=== PATIENT | female | born 1945 | race Two or more races ===

== ENCOUNTER 2024-07-08 15:00 | Emergency (ER) | payer OTHER ==
[~2024-07-08] VITALS: Ht 157.5 cm; Wt 44.5 kg
[2024-07-08 15:19] VITALS: PULSE 64; RESP 18; O2SAT 95
--- NOTE | 2024-07-08 15:20 | ED.PDOC ---
History of Present Illness HPI Comments 78 year old female LEANNA presents to the ED with chief complaint of muscle spasms and generalized numbness. Patient reports that she has had chronic generalized numbness for the past year, following up with her PCP regarding this, but no diagnosis has been made. Patient relays that last night she started to e xperience severe muscle spasms and stiffness. Patient notes some shortness of breath, but believes it to be due to anxiety she is having regarding her condition. Patient denies any weakness, headache, LOC, dizziness, chest pain, or fever. Patient appears to be in poor overall health and is slight in stature. Chief Complaint: General Weakness Time Seen by MD: 15:17 Reviewed Notes: Nurses Notes, Mill Tender Washing Notes, Medications, Allergies Allergies: Coded Allergies: Statins (Verified Allergy, Unknown, 07/08/24) Information Source: Patient, Emergency Med Personnel Mode of Arrival: EMS Severity: Moderate Timing: Hours Duration: Since onset Prehospital treatment: None Past Medical History PAST MEDICAL HISTORY: Denies Past Medical History (Other): Recent history of weakness and muscle cramping Surgical History: Denies all surgeries DEAF/HARD OF HEARING SPECIALIST History: Denies all DEAF/HARD OF HEARING SPECIALIST Hx Family History Family History: Reviewed,noncontributory to illness Social History Smoker: Non-Smoker Alcohol: Denies ETOH Use Drugs: Denies Drug Use Lives In: Home Constitutional: reports: fatigue, weakness; denies: chills, diaphoresis, fever, malaise, sweats, others EENTM: denies: blurred vision, double vision, ear bleeding, ear discharge, ear drainage, ear pain, ear ringing, eye pain, eye redness, hearing loss, mouth pain, mouth swelling, nasal discharge, nose bleeding, nose congestion, nose pain, photophobia, tearing, throat pain, throat swelling, voice changes, others Respiratory: reports: shortness of breath; denies: cough, hemoptysis, orthopnea, SOB at rest, SOB with excertion, stridor, wheezing, others Cardiovascular: denies: chest pain, dizzy spells, diaphoresis, Dyspnea on exertion, edema, irregular heart beat, left arm pain, lightheadedness, palpitations, PND, syncope, others Gastrointestinal: denies: abdomen distended, abdominal pain, blood streaked bowels, constipated, diarrhea, dysphagia, difficulty swallowing, hematemesis, melena, nausea, poor appetite, poor fluid intake, rectal bleeding, rectal pain, vomiting, others Genitourinary: denies: abnormal vagina bleeding, burning, dyspareunia, dysuria, flank pain, frequency, hematuria, incontinence, pain, , vagina discharge, urgency, others Neurological: reports: numbness; denies: dizziness, fainting, headache, left sided numbness, left sided weakness, paresthesia, pre-existing deficit, right sided numbness, right sided weakness, seizure, speech problems, tingling, tremors, weakness, others Musculoskeletal: reports: others (Muscle spasms); denies: back pain, gout, joint pain, joint swelling, muscle pain, muscle stiffness, neck pain Integumetry: denies: bruises, change in color, change in hair/nails, dryness, laceration, lesions, lumps, rash, wounds, others Allergic/Immunocompromised: denies: Difficulty Healing, Frequent Infections, Hives, Itching, others Hematologic/Lymphatic: denies: anemia, blood clots, easy bleeding, easy bruising, swollen glands, others Endocrine: denies: excessive hunger, excessive sweating, excessive thirst, excessive urination, flushing, intolerance to cold, intolerance to heat, unexplained weight gain, unexplained weight loss, others Psychiatric: reports: anxiety; denies: bipolar disorder, depression, hopeless, panic disorder, schizophrenia, sleepless, suicidal, others All Other Systems: Reviewed and Negative Physical Exam General Appearance: Mild Distress ( patient appears to be in moderate distress due to anxiety related to her event rather than definitive pain concerns.), Normal HEENT: Normal ENT Inspection, Pharynx Normal, TMs Normal Neck: Full Range of Motion, Non-Tender, Normal, Normal Inspection Respiratory: Chest Non-Tender, Lungs Clear, No Accessory Muscle Use, No Respiratory Distress, Normal Breath Sounds Cardiovascular: No Edema, No JVD, No Murmur, No Gallop, Normal Peripheral Pulses, Regular Rate/Rhythm Breast Exam: Deferred Gastrointestinal: No Organomegaly, Non Tender, No Pulsatile Mass, Normal Bowel Sounds, Soft Genitalia: Deferred Pelvic: Deferred Rectal: Deferred Extremities: Other ( Patient was slight of build and displays equal weakness bilaterally. No definitive muscle wasting appreciated. No signs of trauma or infective components.) Neurologic: NOT DONE Cerebellar Function: NOT DONE Reflexes: NOT DONE Skin: Dry, Normal Color, Warm Lymphatic: No Adenopathy Was a procedure done? Was a procedure done?: No Differential Dx Considerations may include: Electrolyte imbalance, sepsis, viral illness, neurologic concerns X-Ray, Labs, Meds, VS Vital Signs Date Time Temp Pulse Resp B/P (MAP) Pulse Ox O2 Delivery O2 Flow Rate FiO2 07/08/24 18:00 67 16 133/96 (108) 93 07/08/24 15:34 98.8 71 16 107/58 (74) 94 98.8 07/08/24 15:22 71 07/08/24 15:19 64 18 95 Room Air* 0 21 07/08/24 15:05 97.8 82 18 141/76 (97) 97 97.8 Lab Test 07/08/24 17:39 07/08/24 15:40 07/08/24 15:22 Range/Units Troponin I High Sensitivity 3 L 3 L </=34 ng/L Urine Color Yellow Yellow Urine Clarity Turbid H Clear Urine pH 7.5 5.0-9.0 Urine Specific [place] 1.018 1.001-1.035 Urine Protein Negative Negative Urine Ketones Negative Negative Urine Blood Negative Negative /uL Urine Nitrite Negative Negative Urine Bilirubin Negative Negative Urine Urobilinogen Normal Negative mg/dL Urine Leukocyte Esterase Negative Negative /uL Urine RBC 1 0 - 4 /hpf Urine Microscopic WBC 1 0-5 /HPF Urine Squamous Epithelial Cells None seen <5 /hpf Urine Bacteria None seen None Seen /hpf Urine Glucose 1+ H Normal mg/dL White Blood Count 5.0 4.4-10.8 10^3/uL Red Blood Count 4.16 4.0-5.20 10^6/uL Hemoglobin 13.7 12.2-16.2 g/dL Hematocrit 40.9 36.0-46.0 % Mean Corpuscular Volume 98.5 80.0-100.0 fL Mean Corpuscular Hemoglobin 32.9 H 28.0-32.0 pg Mean Corpuscular Hemoglobin Concent 33.4 32.0-36.0 g/dL Red Cell Distribution Width 12.9 11.8-14.3 % Platelet Count 269 140-450 10^3/uL Mean Platelet Volume 7.5 6.9-10.8 fL Neutrophils (%) (Auto) 61.7 37.0-80.0 % Lymphocytes (%) (Auto) 29.2 10.0-50.0 % Monocytes (%) (Auto) 6.4 0.0-12.0 % Eosinophils (%) (Auto) 1.8 0.0-7.0 % Basophils (%) (Auto) 0.9 0.0-2.0 % Neutrophils # (Auto) 3.1 1.6-8.6 10 ^3/uL Lymphocytes # (Auto) 1.5 0.4-5.4 10 ^3/uL Monocytes # (Auto) 0.3 0-1.3 10 ^3/uL Eosinophils # (Auto) 0.1 0-0.8 10 ^3/uL Basophils # (Auto) 0 0-0.2 10 ^3/uL Nucleated Red Blood Cells 0.0 % D-Dimer, Quantitative 0.89 H 0.0-0.49 mg/L FEU Sodium Level 139 136-145 mmol/L Potassium Level 4.3 3.5-5.1 mmol/L Chloride Level 102 98-107 mmol/L Carbon Dioxide Level 28 20-31 mmol/L Anion Gap 9 5-15 Blood Urea Nitrogen 19 9-23 mg/dL Creatinine 0.59 0.550-1.02 mg/dL Glomerular Filtration Rate Calc 92 >90 mL/min BUN/Creatinine Ratio 32.2 H 10.0-20.0 Serum Glucose 224 H 74-106 mg/dL Calcium Level 9.8 8.7-10.4 mg/dL Magnesium Level 1.3 L 1.6-2.6 mg/dL Total Bilirubin 0.3 0.2-1.0 mg/dL Aspartate Amino Transferase (AST) 11 L 13-40 U/L Alanine Aminotransferase (ALT) 9 7-40 U/L Alkaline Phosphatase 50 46-116 U/L B-Type Natriuretic Peptide 36.79 0-100 pg/mL Total Protein 5.9 5.7-8.2 g/dL Albumin 3.9 3.2-4.8 g/dL X-Ray, Labs, Meds, VS Comment All studies performed the ED were evaluated by me personally. Serum laboratories were unremarkable for any systemic process as was urinalysis. EKG revealed a sinus rhythm with a rate of 71. 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 ME interval 166 and QT interval of 379.Chest x-ray was unremarkable for any consolidation or fibrotic i llness. Unknown as to the patient's general weakness concerns. Advised patient she will need to continue follow up with the primary care provider for possible rheumatology referral and evaluation. Time of 1ST Reevaluation: 19:19 Reevaluation 1ST: Improved Consultation: PCP Patient Education/Counseling: Diagnosis, Treatment Family Education/Counseling: Diagnosis, Treatment, No Family Present Departure 1 Departure Time of Disposition: 19:20 Impression: Primary Impression: Generalized weakness Disposition: HOME / SELF CARE / HOMELESS Condition: Stable Additional Instructions: Advised patient continue follow up with primary care provider for continued evaluation of her general weakness concerns. Patient may require a rheumatology referral and evaluation or possible neurologic referral. Discharged With: Self, Spouse Critical Care Note Critical Care Time?: No Stability Stability form required: No Heart Score Heart Score: Heart Score Response (Comments) Value History Slightly Suspicious 0 EKG Repolarization Disturb 1 Age >65 2 Risk Factors No known risk factors 0 Troponin Normal limit 0 Total 3 I personally scribed for YAMEL KAPADIA PAC ([email or web address]) on 07/08/24 at 15:19. Electronically submitted by Gualberto Boyer ([email or web address]). YAMEL KAPADIA PAC Jul 08, 2024 15:19
[2024-07-08 15:50] LABS: Basophils # (auto) 0 10 ^3/uL (0-0.2); Basophils % (auto) 0.9 % (0.0-2.0); Eosinophils # (auto) 0.1 10 ^3/uL (0-0.8); Eosinophils % (auto) 1.8 % (0.0-7.0); Hematocrit 40.9 % (36.0-46.0); Hemoglobin 13.7 g/dL (12.2-16.2); Lymphocytes # (auto) 1.5 10 ^3/uL (0.4-5.4); Lymphocytes % (auto) 29.2 % (10.0-50.0); Mean Corpuscular Hemoglobin 32.9 pg (28.0-32.0); Mean Corpuscular Hgb Conc. 33.4 g/dL (32.0-36.0); Mean Corpuscular Volume 98.5 fL (80.0-100.0); Monocytes # (auto) 0.3 10 ^3/uL (0-1.3); Monocytes % (auto) 6.4 % (0.0-12.0); Neutrophils # (auto) 3.1 10 ^3/uL (1.6-8.6); Neutrophils % (auto) 61.7 % (37.0-80.0); Platelet Count (auto) 269 10^3/uL (140-450); Red Blood Cells 4.16 10^6/uL (4.0-5.20); Red Cell Distribution Width 12.9 % (11.8-14.3)
--- NOTE | 2024-07-08 15:51 | DVH ---
CHEST RADIOGRAPH Indication: Shortness of breath Technique: Single frontal view of the chest was obtained Comparison: None FINDINGS: Lines and Tubes: None Lungs: No focal consolidation. Pleura: No effusion. No pneumothorax. Cardiomediastinal contours: Unremarkable Bones: No acute osseous abnormality. IMPRESSION: 1. No acute cardiopulmonary disease. HS:Y
[2024-07-08 16:07] LABS: Albumin 3.9 g/dL (3.2-4.8); Alkaline Phosphatase 50 U/L (46-116); Anion Gap 9 (5-15); BUN/Creatinine Ratio 32.2 (10.0-20.0); Blood Urea Nitrogen 19 mg/dL (9-23); Calcium 9.8 mg/dL (8.7-10.4); Carbon Dioxide 28 mmol/L (20-31); Chloride 102 mmol/L (98-107); Potassium 4.3 mmol/L (3.5-5.1); Sodium 139 mmol/L (136-145); Total Protein 5.9 g/dL (5.7-8.2)
[2024-07-08 16:08] LABS: Bilirubin, Total 0.3 mg/dL (0.2-1.0)
[2024-07-08 16:11] LABS: Alanine Aminotransferase 9 U/L (7-40); Aspartate Aminotransferase 11 U/L (13-40); Glucose 224 mg/dL (74-106); Magnesium 1.3 mg/dL (1.6-2.6)
[2024-07-08 16:44] LABS: Urine Bacteria None Seen /hpf (None Seen)
[2024-07-08 16:56] LABS: Urine Blood Negative /uL (Negative); Urine Clarity Turbid (Clear); Urine Color Yellow (Yellow); Urine Protein, UAD Negative (Negative); Urine Specific Gravity 1.018 (1.001-1.035); Urine Squamous Epithelial Cell None Seen /hpf (<5); Urine Urobilinogen Normal (Negative); Urine WBC 1 /HPF (0-5); Urine pH 7.5 (5.0-9.0)
--- NOTE | 2024-07-08 18:53 | ECG ---
[facility] Test Date: 2024-07-08 Test Time: 15:22:12 Pat Name: LASHONDA ALEMAN Department: ED Room: Gender: F Shuttle Operator: [email or web address] : 1945 Requested By: YAMEL KAPADIA Order Number: [id number] Reading MD: Igor Hill Measurements Intervals [place] Rate: 71 P: 38 [place]: 166 QRS: 41 QRSD: 78 T: 49 QT: 379 QTc: 412 Interpretive Statements Sinus rhythm Low voltage, extremity leads Probable anteroseptal infarct, old Electronically Signed On 07-12-2024 21:58:14 PDT by Igor Hill Please click the below link to view image of tracing.
[2024-07-08 20:00] VITALS: BP 124/91; PULSE 68; RESP 16; TEMP 98.2; O2SAT 97
== END 2024-07-08 21:00 | disposition home or self-care (01) ==
LOC: EDBD 15:00 → ER 15:03
DX: R53.1 Weakness (principal); M62.838 Other muscle spasm; R20.0 Anesthesia of skin; R06.02 Shortness of breath
CPT/HCPCS: 36415; 71045; 80053; 81001; 83735; 83880; 84484; 85025; 85379; 93005; 96365; 96375